=== PATIENT | male | born 1955 | race Caucasian/White ===

== ENCOUNTER 2018-12-06 09:04 | Emergency (ER) | payer BC ==
[2018-12-06 09:33] VITALS: BP 153/79
--- NOTE | 2018-12-06 10:23 | ED ---
Throat Pain/Nasal Congestion - HPI Summary HPI Summary: 63 yr old with two and a half days of irritation to the left eye, and itching, and now watering. Hi symptoms are moderate. He denies change in vision.He does not use contact lenses. no FB sensation. He has had the same thing happen three other times in the past that cleared up with eye ointment. - History of Current Complaint Chief Complaint: UCEye Time Seen by Provider: 12/06/18 10:02 - Allergies/Home Medications Allergies/Adverse Reactions: Allergies Allergy/AdvReac Type Severity Reaction Status Date / Time No Known Allergies Allergy Verified 12/06/18 09:27 Home Medications: Home Medications Allopurinol TAB* [Zyloprim 300 MG TAB*] 300 mg PO DAILY 12/06/18 [History Confirmed 12/06/18] Levothyroxine TAB* [Synthroid TAB*] 125 mcg PO DAILY 12/06/18 [History Confirmed 12/06/18] Omeprazole CAP (NF) [Prilosec CAP* 20 MG] 20 mg PO DAILY 12/06/18 [History Confirmed 12/06/18] amLODIPine TAB* [Norvasc 5 mg TAB*] 2.5 mg PO DAILY 12/06/18 [History Confirmed 12/06/18] PMH/Surg Hx/FS Hx/Imm Hx Endocrine/Hematology History: Reports: Hx Thyroid Disease - Hypothyroidism Cardiovascular History: Reports: Hx Hypertension Infectious Disease History: No Infectious Disease History: Denies: Traveled Outside the [place] in Last 30 Days - Family History Known Family History: Positive: None - Social History Alcohol Use: None Substance Use Type: Reports: None Smoking Status (MU): Former Smoker Type: Cigarettes Length of Time of Smoking/Using Tobacco: 1 1/2 PPD x 35 Years Have You Smoked in the Last Year: No Review of Systems Constitutional: Negative Positive: Drainage, Erythema All Other Systems Reviewed And Are Negative: Yes Physical Exam Triage Information Reviewed: Yes Vital Signs On Initial Exam: Initial Vitals Temp Pulse Resp BP Pulse Ox 97.9 F 74 18 153/79 100 12/06/18 09:23 12/06/18 09:23 12/06/18 09:23 12/06/18 09:23 12/06/18 09:23 Vital Signs Reviewed: Yes Appearance: Positive: Well-Appearing, No Pain Distress Skin: Positive: Warm, Skin Color Reflects Adequate Perfusion Eyes: Positive: EOMI, GEORGINA, Conjunctiva Inflammed ENT: Positive: Pharynx normal. Negative: Nasal congestion Neck: Positive: Nontender Respiratory/Lung Sounds: Positive: Clear to Auscultation, Breath Sounds Present Cardiovascular: Positive: RRR. Negative: Murmur Abdomen Description: Negative: Distended Neurological: Positive: Sensory/Motor Intact, Alert, Oriented to Person Place, Time, CN Intact II-III, Normal Gait, Speech Normal Psychiatric: Positive: Normal Diagnostics - Vital Signs Vital Signs Temp Pulse Resp BP Pulse Ox 12/06/18 09:23 97.9 F 74 18 153/79 100 - Laboratory Lab Statement: Any lab studies that have been ordered have been reviewed, and results considered in the medical decision making process. EENT Course/Dx - Course Course Of Treatment: 63 yr old with conjunctivitis. Rx with erythromycin eye ointment. Referral to Optho for reassessment. Referral to PMD for BP recheck. - Diagnoses Provider Diagnoses: Conjunctivitis Discharge - Sign-Out/Discharge Documenting (check all that apply): Patient Departure All imaging exams completed and their final reports reviewed: No Studies - Discharge Plan Condition: Good Disposition: HOME Prescriptions: Erythromycin OPTH OINT* [Erythromycin 0.5% OPTH OINT*] 1 applic BOTH EYES TID # 1 tube Patient Education Materials: Conjunctivitis (ED), Hypertension (ED) Referrals: Whitney Barker MD [Primary Care Provider] - 2 Days Ondina Darnell MD [Medical Doctor] - 1 Day - Billing Disposition and Condition Condition: GOOD Disposition: Home
== END 2018-12-06 10:25 | disposition home or self-care (01) ==
LOC: UCCORT 09:04
DX: H10.9 Unspecified conjunctivitis (principal); E03.9 Hypothyroidism, unspecified; I10 Essential (primary) hypertension; Z87.891 Personal history of nicotine dependence
CPT/HCPCS: 99202; G0463

== ENCOUNTER 2019-05-18 09:18 | Emergency (ER) | payer BC ==
[2019-05-18 09:40] VITALS: BP 132/71
--- NOTE | 2019-05-18 10:01 | UC ---
Eye Complaint HPI - HPI Summary HPI Summary: 64 y/o male presents to the urgent care c/o left eye redness and yellowish crusting drainage since this morning when he woke up. He states last night he noticed his eye was red. He states this is the 2nd time he has similar symptoms. Last time he was Rx Erythromycin ophthalmic oint for conjunctivitis by his PCP and symptoms resolved very quickly. He request the same ophthalmic oint. Pt denies fever, photophobia, eye pain, visual changes, MCDANIEL, SOB, chest pain, abdominal pain, N/V/D. - History of Current Complaint Chief Complaint: UCEye Stated Complaint: LEFT EYE CONCERN Time Seen by Provider: 05/18/19 09:59 Hx Obtained From: Patient Onset/Duration: Gradual Onset, Lasting Days - 1 day, Still Present, Worse Since - this morning Timing: Constant Severity Initially: Mild Severity Currently: Mild Pain Intensity: 2 - left eye irritation Pain Scale Used: 0-10 Numeric Location of Injury: Conjunctiva - left conjunctiva red Character: Dull Aggravating Factor(s): Blinking Alleviating Factor(s): Nothing Associated Signs And Symptoms: Positive: Drainage (Purulent) - crusting this morning. Negative: Photophobia, Fever, Swelling Related History: Diagnosed As: - conjunctivitis about 6 months - Risk Factors Penetrating Injury Risk Factor: Negative Globe Rupture Risk Factors: Negative Acute Glaucoma Risk Factors: Negative Optic Artery Occlusion Risk Factors: Negative - Allergies/Home Medications Allergies/Adverse Reactions: Allergies Allergy/AdvReac Type Severity Reaction Status Date / Time No Known Allergies Allergy Verified 12/06/18 09:27 Home Medications: Home Medications hydroCHLOROthiazide [Hydrochlorothiazide] 12.5 mg PO DAILY 05/18/19 [History Confirmed 05/18/19] PMH/Surg Hx/FS Hx/Imm Hx Previously Healthy: Yes Endocrine History: Hypothyroidism Other Endocrine History: Gout Cardiovascular History: Hypertension GI/ History: Gastroesophageal Reflux - Surgical History Surgical History: None - Family History Known Family History: Positive: Hypertension - Social History Occupation: Employed Full-time Lives: With Family Alcohol Use: None Substance Use Type: None Smoking Status (MU): Former Smoker Type: Cigarettes Length of Time of Smoking/Using Tobacco: 1 1/2 PPD x 35 Years Have You Smoked in the Last Year: No When Did the Patient Quit Smoking/Using Tobacco: 2003 - Immunization History Most Recent Influenza Vaccination: 2013 Review of Systems All Other Systems Reviewed And Are Negative: Yes Constitutional: Positive: Negative Skin: Positive: Negative Eyes: Positive: Drainage - yellowish crusting this morning, Eye Redness - left eye. Negative: Blurred Vision, Diplopia, Photophobia ENT: Positive: Negative Respiratory: Positive: Negative Cardiovascular: Positive: Negative Gastrointestinal: Positive: Negative Genitourinary: Positive: Negative Motor: Positive: Negative Neurovascular: Positive: Negative Musculoskeletal: Positive: Negative Neurological: Positive: Negative Psychological: Positive: Negative Is Patient Immunocompromised?: No Physical Exam - Summary Physical Exam Summary: Vital Signs Reviewed: Yes General: Well appearing, well nourished obese male in no apparent pain distress Eyes: Positive: Left Conjunctiva Inflamed - Visual acuity: WNL,Visual malik: full to confrontation. PERRLA, EOMI intact w/out limitation or complaint of pain. eyelashes clear. mild tearing and yellowish drainage observed. No ciliary flush. No chemosis, No photophobia. Normal fundoscopic exam; no proptosis, exophthalmos, nystagmus. ENT: Positive: Normal ENT inspection, Hearing grossly normal, Pharynx normal, Nasal congestion, Nasal drainage - clear, TMs normal - B/L external ear canal clear , TM's WNL. Negative: Tonsillar swelling, Tonsillar exudate Neck: Positive: Supple, Nontender, No Lymphadenopathy Respiratory: Positive: Chest nontender, Lungs clear, Normal breath sounds, No respiratory distress Cardiovascular: Positive: RRR, No Murmur, Pulses Normal, Brisk Capillary Refill Abdomen Description: Positive: Nontender, No Organomegaly, Soft. Negative: CVA Tenderness (R), CVA Tenderness (L) Bowel Sounds: Positive: Present Musculoskeletal: Positive: Strength Intact, ROM Intact, No Edema Neurological Exam: Normal Psychological Exam: Normal Skin Exam: Normal Triage Information Reviewed: Yes Vital Signs: Initial Vital Signs Temp 97.6 F 05/18/19 09:35 Pulse 61 05/18/19 09:35 Resp 16 05/18/19 09:35 BP 132/71 05/18/19 09:35 Pulse Ox 100 05/18/19 09:35 Eye Complaint Course/Dx - Course Course Of Treatment: 64 y/o male presents to the urgent care c/o left eye redness and yellowish crusting drainage since this morning when he woke up. He states last night he noticed his eye was red. He states this is the 2nd time he has similar symptoms. Last time he was Rx Erythromycin ophthalmic oint for conjunctivitis by his PCP and symptoms resolved very quickly. He request the same ophthalmic oint. Pt denies fever, photophobia, eye pain, visual changes, MCDANIEL, SOB, chest pain, abdominal pain, N/V/D. Hx obtained. Pt w/ left eye bacterial conjunctivitis on examination. Pt Rx Erythromycin ophthalmic oint as directed below and encourage hand washing to avoid spread and advised if symptoms do not improve or worsen to f/u with Instrument Room Technician Dr Darnell in 3 days. Pt understood and agreed w/ plan of care. - Differential Dx/Diagnosis Differential Diagnosis/HQI/PQRI: Conjunctivitis, Penetrating Injury, Periorbital Cellulitis, Uveitis Provider Diagnosis: Conjunctivitis, left eye Discharge - Sign-Out/Discharge Documenting (check all that apply): Patient Departure - D/C home All imaging exams completed and their final reports reviewed: No Studies - Discharge Plan Condition: Stable Disposition: HOME Prescriptions: Erythromycin OPTH OINT* [Erythromycin 0.5% OPTH OINT*] 1 applic LEFT EYE TID #1 ophth.oint Patient Education Materials: Conjunctivitis (ED) Referrals: Whitney Barker MD [Primary Care Provider] - 3 Days Ondina Darnell MD [Medical Doctor] - If Needed Additional Instructions: 1-Please apply ophthalmic ointment in your LF eye as directed. encourage hand washing to prevent spreading infection to your other eye. 2- If you do not improve or if symptoms worsen please f/u with trust mail clerk DR Darnell for further evaluation and treatment - Billing Disposition and Condition Condition: STABLE Disposition: Home - Attestation Statements Provider Attestation: Per institutional requirements, I have reviewed the chart, however, I was not consulted specifically or made aware of this patient by the midlevel provider. I did not personally evaluate, interact with , or disposition this patient.
== END 2019-05-18 10:20 | disposition home or self-care (01) ==
LOC: UCCORT 09:18
DX: I10 Essential (primary) hypertension (principal); Z87.891 Personal history of nicotine dependence
CPT/HCPCS: 99212; G0463

== ENCOUNTER 2019-11-04 11:14 | Emergency (ER) | payer BC ==
[2019-11-04 11:27] VITALS: BP 157/72
--- NOTE | 2019-11-04 12:50 | UC ---
FLU HPI - HPI Summary HPI Summary: 64 year old male with known kidney disease, "~ 60% functioning", thrombocytopenia with plt counts typically ~90, with common blood in urine when having an infection such as PNA, strep throat. [place] patient noted feeling ill , mild tactile fever, body aches, chills. + frequent urination. Denies cough, sore throat, ear pain, sinus problems, GI symptoms, abdominal pains. no sinus pressure/ congestion. patient had full work up for urinary issues in past. He is seeing his primary physician sumi. - History of Current Complaint Chief Complaint: UCGU Stated Complaint: FEVER/CHILLS/URINARY Time Seen by Provider: 11/04/19 12:26 Hx Obtained From: Patient Onset/Duration: Sudden Onset, Lasting Days Severity Currently: Moderate Severity Initially: Moderate Pain Intensity: 0 Pain Scale Used: 0-10 Numeric Associated Signs & Symptoms: Positive: Fever - tactile, F/C, Myalgia. Negative : Cough, Sore Throat, Nasal Congestion, Headache, Vomiting, Diarrhea Related Hx: Possible Flu/Infectious Exposure - Allergy/Home Medications Allergies/Adverse Reactions: Allergies Allergy/AdvReac Type Severity Reaction Status Date / Time No Known Allergies Allergy Verified 11/04/19 11:22 PMH/Surg Hx/FS Hx/Imm Hx Previously Healthy: Yes - h/o hematuria with work up - Surgical History Surgical History: None - Family History Known Family History: Positive: None, Hypertension, Non-Contributory - Social History Occupation: Employed Full-time Alcohol Use: None Substance Use Type: None Smoking Status (MU): Former Smoker Type: Cigarettes Length of Time of Smoking/Using Tobacco: 1 1/2 PPD x 35 Years Have You Smoked in the Last Year: No When Did the Patient Quit Smoking/Using Tobacco: 2003 - Immunization History Most Recent Influenza Vaccination: 2012 Review of Systems All Other Systems Reviewed And Are Negative: Yes Constitutional: Positive: Chills, Fatigue. Negative: Fever Skin: Positive: Negative. Negative: Rash, Bruising Eyes: Negative: Blurred Vision ENT: Negative: Sore Throat, Ear Ache, Nasal Discharge, Sinus Congestion, Sinus Pain/Tenderness Respiratory: Negative: Shortness Of Breath, Cough Cardiovascular: Negative: Palpitations, Chest Pain Gastrointestinal: Negative: Abdominal Pain, Vomiting, Diarrhea, Nausea Genitourinary: Positive: Hematuria, Frequency. Negative: Dysuria, Urgency, Vaginal/Penile Burning, Vaginal/Penile Itching, Vaginal/Penile Discharge, Vaginal/Penile Pain, Vaginal/Penile Tenderness, Ulceration/Lesion, Abnormal Bleeding Motor: Negative: Decreased ROM, Weakness Neurovascular: Negative: Decreased Sensation, Decreased Pulses Musculoskeletal: Positive: Myalgia. Negative: Arthralgia, Decreased ROM, Edema Neurological: Negative: Headache, Weakness, Paresthesia Psychological: Negative: Anxious, Depressed Is Patient Immunocompromised?: No Physical Exam Triage Information Reviewed: Yes Appearance: No Pain Distress, Well-Nourished, Ill-Appearing - mild Vital Signs: Initial Vital Signs Temp 98.3 F 11/04/19 11:23 Pulse 83 11/04/19 11:23 Resp 17 11/04/19 11:23 BP 157/72 11/04/19 11:23 Pulse Ox 10 11/04/19 11:23 Vital Signs Reviewed: Yes Eyes: Positive: Conjunctiva Clear ENT: Positive: Pharynx normal, TMs normal, Uvula midline. Negative: Nasal congestion, Nasal drainage, Tonsillar swelling, Tonsillar exudate, Sinus tenderness Neck: Positive: Supple, Nontender, No Lymphadenopathy. Negative: Enlarged Nodes @ Respiratory: Positive: Chest non-tender, Lungs clear, Normal breath sounds, No respiratory distress, No accessory muscle use. Negative: Respiratory distress, Crackles, Rhonchi, Stridor, Wheezing, Expiration Cardiovascular: Positive: RRR, No Murmur Abdomen Description: Positive: Nontender, No Organomegaly. Negative: CVA Tenderness (R), CVA Tenderness (L), McBurney's Point Tenderness, Splenomegaly Musculoskeletal: Positive: Strength Intact Neurological: Positive: Alert Psychological: Positive: Normal Response To Family Flu Course/Dx - Course Course Of Treatment: - Follow up with primary weds- If he feels based on cultures/ symptoms that it is related to prostatitis you will require further antibiotic treatment. - Continue antibiotics as tolerated - Increase fluid intake as tolerated - Motrin, tylenol as needed for symptoms. - Go to ER with increased symptoms, difficulty with urination, fever > 102, shortness of breath - Differential Dx/Diagnosis Differential Diagnosis/HQI/PQRI: Influenza, RSV, Upper Respiratory Infection Provider Diagnosis: UTI (urinary tract infection) Discharge ED - Sign-Out/Discharge Documenting (check all that apply): Patient Departure All imaging exams completed and their final reports reviewed: No Studies - Discharge Plan Condition: Good Disposition: HOME Prescriptions: Sulfamethox/Trimethoprim DS* [Bactrim DS 800/160 TAB*] 1 tab PO BID #20 tab Patient Education Materials: Prostatitis (ED), Urinary Tract Infection in Men ( ED) Forms: *Gen. Provider Communication Referrals: Whitney Barker MD [Primary Care Provider] - Additional Instructions: - Follow up with primary weds- If he feels based on cultures/ symptoms that it is related to prostatitis you will require further antibiotic treatment. - Continue antibiotics as tolerated - Increase fluid intake as tolerated - Motrin, tylenol as needed for symptoms. - Go to ER with increasd symptoms, difficulty with urination, fever > 102, shortness of breath - Billing Disposition and Condition Condition: GOOD Disposition: Home - Attestation Statements Provider Attestation: This patient was not seen by me. I was available for consult. Chart reviewed. NEVILLE
[2019-11-04 12:58] LABS: Influenza A Molecular NEGATIVE (Negative); Influenza B Molecular NEGATIVE (Negative)
== END 2019-11-04 13:24 | disposition home or self-care (01) ==
LOC: UCCORT 11:14
DX: N39.0 Urinary tract infection, site not specified (principal); R31.9 Hematuria, unspecified; Z87.891 Personal history of nicotine dependence
CPT/HCPCS: 81003; 87086; 99212; G0463